=== PATIENT | male | born 1995 | race Caucasian/White ===

== ENCOUNTER 2021-10-09 13:06 | Emergency (ER) | payer SELFPAY ==
[~2021-10-09] VITALS: Ht 162.6 cm; Wt 59.1 kg
[~2021-10-09 13:06] MED LIST: CEPHALEXIN500 M1 PO
[2021-10-09 13:31] VITALS: TEMP 98.1
[2021-10-09] MEDS ORDERED: LIDODERM 5% PATC1 EA TP (14:10)
[2021-10-09 14:28] VITALS: BP 104/73; PULSE 74
== END 2021-10-09 14:28 | disposition home or self-care (01) ==
LOC: COL.ER 13:06
DX: R07.89 Other chest pain (principal); M25.511 Pain in right shoulder; V49.00XA Driver injured in collision with unspecified motor vehicles in nontraffic accident, initial encounter; Y92.411 Interstate highway as the place of occurrence of the external cause

== ENCOUNTER → 2021-10-14 | Outpatient (CLI) | payer SELFPAY ==
[~2021-10-14] MED LIST changes: +LIDODERM 5% PATC1 EA TP
[2021-10-14 11:40] VITALS: BP 126/66; PULSE 64
== END ==
LOC: COL.ER 11:07
DX: Z48.02 Encounter for removal of sutures (principal)